=== PATIENT | female | born 1975 | race American Indian/Alaskan Native ===

== ENCOUNTER 2019-06-17 05:58 | Inpatient (IN) | payer MEDICAID ==
[2019-06-17] MEDS ORDERED: NACL BACTERIOSTATIC INFILTRATI ONE (06:43)
[2019-06-17 07:02] LABS: Basophils % (Auto) 0.7 % (0.0-1.8); Eosinophils # (Auto) 0.1 K/mm3 (0.0-0.4); Eosinophils % (Auto) 1.2 % (0.0-4.3); Hematocrit 36.8 % (30.3-42.9); Hemoglobin 12.5 gm/dl (10.1-14.3); Lymphocytes # (Auto) 1.8 K/mm3 (1.2-5.4); Lymphocytes % (Auto) 37.9 % (13.4-35.0); Mean Corpuscular HGB Conc 34 % (30-34); Mean Corpuscular Volume 83 fl (79-97); Monocytes # (Auto) 0.5 K/mm3 (0.0-0.8); Monocytes % (Auto) 10.1 % (0.0-7.3); Platelet Count 247 K/mm3 (140-440); Red Blood Count 4.45 M/mm3 (3.65-5.03); Red Cell Distribution Width 15.3 % (13.2-15.2)
--- NOTE | 2019-06-17 07:12 | History and Physical Report ---
History of Present Illness Date of examination: 06/17/19 Date of admission: 06/17/19 05:58 Chief complaint: uterine fibroids History of present illness: 44y/o with an enlarged fibroid uterus. Pelvic ultrasound has demonstrated multiple leiomyomas. The overall size of the uterus is 21cm with the largest leiomyoma being 9.9cm. She reports pelvic pain and pressure. She has elected to undergo definitive surgical management Past History Past Medical History: hypertension Past Surgical History: other (breast biopsy; wrist surgery) MANAGER GRAPHIC History: fibroids Social history: single - Obstetrical History : 3 Para: 3 Hx # Term Pregnancies: 3 Number of Pregnancies: 0 Spontaneous Abortions: 0 Induced : 0 Number of Living Children: 3 Medications and Allergies Allergies Allergy/AdvReac Type Severity Reaction Status Date / Time No Known Allergies Allergy Unverified 06/10/19 16:47 Home Medications Medication Instructions Recorded Confirmed Last Taken Type Amlodipine Besylate [Norvasc] 2.5 mg PO DAILY 05/27/19 06/17/19 06/17/19 04:30 History Review of Systems All systems: negative Genitourinary: vaginal bleeding, pelvic pain - Physical Exam Breasts: Positive: deferred Cardiovascular: Regular rate Lungs: Positive: Clear to auscultation Abdomen: Positive: other (central pelvic mass) Results Result Diagrams: 06/17/19 06:50 Abnormal lab results 06/17/19 Range/Units 06:50 RDW 15.3 H (13.2-15.2) % Lymph % (Auto) 37.9 H (13.4-35.0) % Mccormick % (Auto) 10.1 H (0.0-7.3) % All other labs normal. Assessment and Plan - Patient Problems (1) Leiomyoma Current Visit: Yes Status: Acute Plan to address problem: patient is scheduled for a total abdominal hysterectomy (2) Pelvic pain Current Visit: Yes Status: Acute
--- NOTE | 2019-06-17 07:15 | Anesthesia Day of Surgery ---
Anesthesia Day of Surgery - Day of Surgery Patient Examined: Yes Patient H&P Reviewed: Yes Patient is NPO: Yes
--- NOTE | 2019-06-17 07:20 | Anesthesia Consultation ---
Anesthesia Consult and Med Hx Date of service: 06/17/19 - Airway Anesthetic Teeth Evaluation: Good ROM Head & Neck: Adequate Mental/Hyoid Distance: Adequate Mallampati Class: Class II Intubation Access Assessment: Probably Good - Pre-Operative Health Status ASA Pre-Surgery Classification: ASA2 Proposed Anesthetic Plan: General Nerve Block: TAP - Cardiovascular System Hx Hypertension: Yes (x 2mo; Had abnormal EKG. +Cardiac Clearance) Hx Coronary Artery Disease: No (-ETT/ECHO last week ok per pt) - Central Nervous System Hx Psychiatric Problems: No - Hematic Hx Sickle Cell Disease: No - Other Systems Hx Cancer: No
[2019-06-17] MEDS ORDERED: ACD-A 500 ML IV ONE (07:21)
[2019-06-17] MEDS ORDERED: VERSED ONE (07:25)
[2019-06-17] MEDS ORDERED: QUELICIN ONE (07:30)
[2019-06-17] MEDS ORDERED: ROBINUL ONE (07:30)
[2019-06-17] MEDS ORDERED: BLOXIVERZ ONE (07:30)
[2019-06-17] MEDS ORDERED: ZOFRAN ONE (07:30)
[2019-06-17] MEDS ORDERED: DIPRIVAN 10 MG/ML IV ONE (07:30)
[2019-06-17] MEDS ORDERED: XYLOCAINE MPF 2% ONE (07:30)
[2019-06-17] MEDS ORDERED: ZEMURON IV ONE (07:30)
[2019-06-17] MEDS ORDERED: TYLENOL PO NR (07:30)
[2019-06-17] MEDS ORDERED: DECADRON ONE (07:30)
[2019-06-17] MEDS ORDERED: SUBLIMAZE IV PRN (07:30)
[2019-06-17] MEDS ORDERED: SUBLIMAZE ONE ×2 (07:30→09:45)
[2019-06-17] MEDS ORDERED: LACTATED RINGERS 1,000 ML IV SCH (08:00)
[2019-06-17] MEDS ORDERED: ZOFRAN IV PRN (08:00)
[2019-06-17] MEDS ORDERED: ANCEF/STERILE WATER 2 GM/20 ML 2 GM/20 ML SYRINGE IV NR (08:00)
[2019-06-17] MEDS ORDERED: NEURONTIN PO NR (08:00)
[2019-06-17] MEDS ORDERED: NACL 0.9% IR ONE (08:19)
[2019-06-17] MEDS ORDERED: ACD-A IV ONE (08:20)
--- NOTE | 2019-06-17 09:35 | Operative Report ---
Operative Report Operative Report: Date: 06/17/2019 Preoperative diagnosis: Symptomatic uterine fibroids; pelvic pain; dysmenorrhea Postoperative diagnosis: Same as above Procedure: Total abdominal hysterectomy Surgeon: Romelia Cunningham M.D. Excel Developer: Giuliana Doyle Anesthesia: General endotracheal anesthesia Estimated blood loss: 500 mL Cell saver replacement: 200 mL IV fluids: 1100 mL Indication: 44-year-old with history of multiple leiomyomas. The patient elected for definitive surgical management. Pathology: Uterus, cervix, leiomyoma Findings: Enlarged fibroid uterus above the umbilicus. Normal tubes and ovaries bilaterally Procedure: The risk and benefits and indications of the procedure were reviewed with the patient and informed consent was obtained the patient was taken to the operating room. The patient was placed in supine position and given general anesthesia. The patient was prepped and draped in a normal sterile fashion. A vertical skin incision was made down to the layer of the fascia which was nicked in the midline and extended laterally with the Bovie cautery. Superior aspect of the rectus fascia was grasped with Tremaine clamps 2 and the rectus muscles off sharply. This was performed in an inferior fashion as well. The rectus muscle in the midline and the peritoneum entered bluntly. The pelvis was examined with the following findings [default value]. An O'Rodolfo- O'Bang retractor was placed into the incision and the bowel packed away with moist laparotomy sponges. 2 Faust clamps were placed on the cornua and used for retraction. The round ligaments on both sides were clamped transected and suture ligated with 0 Vicryl. The anterior leaf of the broad ligament was then incised along the bladder reflection to the midline from both sides the bladder was then gently dissected off the lower uterine segment and the cervix with a sponge stick. The infundibulopelvic ligament on both sides were doubly clamped transected and suture ligated with 0 Vicryl. Hemostasis was assured. The uterine vessels were then skeletonized bilaterally clamped with Jef clamps transected and suture ligated with 0 Vicryl. The uterosacral ligaments were clamped similarly on both sides transected and suture ligated. The cervix and the uterus were then amputated from the vaginal cuff. The vaginal cuff edges were closed with a Jef fixation stitch and interrupted [id number] stitches in the midline with 0 Vicryl. The pelvis was then copiously irrigated with normal saline. Hemoblast was applied to the surgical sites. All laparotomy sponges and instruments were then removed from the abdomen. The fascia was then closed with 0-PDS in a running fashion. The skin was then reapproximated with kathy and a normal fashion. Pressure dressing was applied to the incision. All sponge laps and needle counts were correct 2. Patient was then successfully extubated. The patient was taken to the recovery room in stable condition.
[2019-06-17] MEDS ORDERED: D5LR 1,000 ML IV SCH (10:00)
[2019-06-17] MEDS: TORADOL IV SCH ×2 (10:05→18:59)
[2019-06-17] MEDS: DILAUDID IV PRN ×2 (10:13→10:23)
[2019-06-17] MEDS ORDERED: MORPHINE IV PRN (10:30)
[2019-06-17] MEDS ORDERED: MILK OF MAGNESIA PO PRN (10:30)
[2019-06-17] MEDS ORDERED: IBUPROFEN PO PRN (10:30)
--- NOTE | 2019-06-17 19:05 | Post Anesthesia Evaluation ---
- Post Anesthesia Evaluation Patient Participated: Yes Airway Patent: Yes Stable Respiratory Function: Yes Nausea/Vomiting: No Temp > 96.8F: Yes Pain Manageable: Yes Adequeate Hydration: Yes Anesthesia Complications: No Block Receding Appropriately: Not Applicable Patient on Ventilator: No
[2019-06-17] MEDS ORDERED: AMBIEN PO PRN (22:00)
[2019-06-18] MEDS: TORADOL IV SCH ×5 (00:34→23:00)
[2019-06-18 04:41] LABS: Hematocrit 35.6 % (30.3-42.9); Hemoglobin 11.5 gm/dl (10.1-14.3)
--- NOTE | 2019-06-18 08:32 | Progress Note ---
Assessment and Plan - Patient Problems (1) Leiomyoma Current Visit: Yes Status: Acute Plan to address problem: patient doing well advance diet as tolerated (2) Pelvic pain Current Visit: Yes Status: Acute Subjective - Subjective Date of service: 06/18/19 Interval history: Patient without complaints. Pain is under control. Patient tolerating clears. Has not voided yet Patient reports: pain well controlled Objective - Vital Signs Latest vital signs: Vital Signs Temp Pulse Resp BP BP Pulse Ox 06/18/19 05:01 98.2 F 80 20 116/71 99 06/17/19 23:16 97.6 F 99 H 18 124/83 99 06/17/19 19:43 98.2 F 84 20 146/84 100 06/17/19 18:59 18 06/17/19 16:10 98.2 F 84 20 134/81 06/17/19 13:00 98.1 F 84 20 125/73 06/17/19 11:00 94 06/17/19 10:30 97.6 F 71 14 141/76 100 06/17/19 10:15 70 14 138/73 100 06/17/19 10:05 62 12 133/64 100 06/17/19 10:00 70 12 133/63 100 06/17/19 09:55 97.4 F L 67 12 140/70 100 Intake and Output 06/17/19 06/18/19 06/18/19 22:59 06:59 14:59 Intake Total 600 Output Total 2200 800 Balance -1600 -800 Intake: Oral 600 Output: Urine 2200 800 Indwelling Catheter 2200 800 Other: Total, Intake Amount 240 Total, Output Amount 600 100 Voiding Method Indwelling Catheter - Exam Abdomen: Present: normal appearance Incision: Present: dressed
[2019-06-19] MEDS: PERCOCET 5/325 PO PRN ×2 (03:31→10:29)
[2019-06-19] MEDS: TORADOL IV SCH ×2 (05:00→11:00)
[2019-06-19 09:21] VITALS: BP 128/71
--- NOTE | 2019-06-19 10:26 | Progress Note ---
Assessment and Plan - Patient Problems (1) Leiomyoma Current Visit: Yes Status: Acute Plan to address problem: patient doing well discharge home (2) Pelvic pain Current Visit: Yes Status: Acute Subjective - Subjective Date of service: 06/19/19 Interval history: Patient without complaints. Pain is under control. Tolerated a regular diet and patient has voided. Patient reports: appetite normal, voiding normally, pain well controlled Objective - Vital Signs Latest vital signs: Vital Signs Temp Pulse Resp BP Pulse Ox 06/19/19 07:49 98.0 F 87 16 128/71 91 06/19/19 05:00 18 06/19/19 04:39 98.5 F 86 20 107/67 90 06/19/19 04:31 18 06/19/19 03:31 18 06/18/19 23:38 98.2 F 87 20 123/71 95 06/18/19 23:00 18 06/18/19 19:58 98.5 F 91 H 20 133/72 96 06/18/19 16:01 98.0 F 91 H 20 136/80 97 06/18/19 12:21 98.5 F 99 H 20 138/72 98 Intake and Output 06/18/19 06/19/19 06/19/19 22:59 06:59 14:59 Intake Total 480 240 Balance 480 240 Intake: Oral 240 Intake, Free Water 240 240 Other: Total, Intake Amount 240 Voiding Method Toilet # Voids Void 1 1 Weight 108.862 kg - Exam Abdomen: Present: normal appearance Incision: Present: normal
--- NOTE | 2019-06-19 10:27 | Discharge Summary ---
Providers - Providers Date of Admission: 06/17/19 05:58 Date of discharge: 06/19/19 Attending physician: KENTON ANAND Primary care physician: FOLLOW UP PCP, Hospitalization Reason for admission: other (uterine fibroids) Procedure: other (CARLOS) Discharge diagnosis: other (fibroids) Hospital course: Patient admitted for a CARLOS. See op note. Postop unremarkable Condition at discharge: Good Disposition: DC-01 TO HOME OR SELFCARE - Discharge Diagnoses (1) Leiomyoma Status: Acute (2) Pelvic pain Status: Acute Plan - Discharge Medications Prescriptions: Ibuprofen [Motrin] 800 mg PO Q8HR PRN #60 tablet PRN Reason: Pain, Mild (1-3) oxyCODONE /ACETAMINOPHEN [Percocet 5/325] 1 tab PO Q6HR PRN #30 tablet PRN Reason: Pain - Provider Discharge Summary Activity: no sex for 6 weeks, no heavy lifting 4 weeks, no strenuous exercise Diet: routine Instructions: routine Additional instructions: [] Smoking cessation referral if applicable(refer to patient education folder for contact #) [] Refer to [facility] Booklet Call your doctor immediately for: * Fever > 100.5 * Heavy vaginal bleeding ( >1 pad per hour) * Severe persistent headache * Shortness of breath * Reddened, hot, painful area to leg or breast * Drainage or odor from incision. * Keep incision clean and dry at all times and follow doctor's instructions regarding bathing/showering schedule followup for for staple removal - Follow up plan
== END 2019-06-19 11:30 | disposition home or self-care (01) | DRG 742 ==
LOC: 3A 05:58 → OB 10:01
PROVIDERS: ADMIT Obstetrics & Gynecology; ATTEND Obstetrics & Gynecology
PROC: 0UT90ZZ Resection of Uterus, Open Approach (ICD-10-PCS; principal; 2019-06-17)
DX: D25.1 Intramural leiomyoma of uterus (principal); Z68.41 Body mass index [BMI] 40.0-44.9, adult; N94.6 Dysmenorrhea, unspecified; I10 Essential (primary) hypertension; Z71.3 Dietary counseling and surveillance; E66.01 Morbid (severe) obesity due to excess calories
CPT/HCPCS: 36415; 81025; 85014; 85018; 85025; 86850; 86900; 86901; 88307; G0378; J0330; J0690; J1100; J1170; J1885; J2250; J2405; J2704; J2710; J3010; J7120; J7121